=== PATIENT | male | born 1955 | race Caucasian/White ===

== ENCOUNTER 2024-11-04 09:51 | Outpatient (OUT) | payer MEDICARE, SELFPAY ==
--- NOTE | 2024-11-04 | ECG_ITS ---
The [facility] Test Date: 2024-11-04 Pat Name: LAZARO CRUZ Department: Room: - Gender: Male Applications Project Manager: : 1955 Requested By: [id number] Order Number: [id number] Reading MD: NAVEED CHEN Measurements Intervals Morrison Rate: 64 P: 75 MI: 174 QRS: 7 QRSD: 121 T: 70 QT: 394 QTc: 409 Interpretive Statements SINUS RHYTHM MODERATE INTRAVENTRICULAR CONDUCTION DELAY [110+ ms QRS DURATION] No previous ECG available for comparison Electronically Signed On 11-04-2024 20:46:39 EST by NAVEED CHEN
--- NOTE | 2024-11-04 10:10 | XR_ITS ---
The [address] [address] Patient Name: LAZARO CRUZ MRN: [id number] date: 1955 Sex: M Assigned Patient Location: RAD Current Patient Location: [facility] Accession/Order Number: [id number] Exam Date: 11/04/2024 10:15 Report Date: 11/04/2024 10:31 At the request of: NON-STAFF PHYSICIAN Procedure: XR chest 2V PROCEDURE: XR chest 2V DATE: 11/04/2024 10:15 AM EST COMPARISONS: None. CLINICAL INDICATION: 69 years Male Chest Pain FINDINGS: The cardiomediastinal silhouette and pulmonary vasculature are within normal limits. The lungs are clear. There is no evidence of pleural effusion or pneumothorax. XR/XR chest 2V IMPRESSION: Chest radiograph is within normal limits. Electronically authenticated by: GINA FISHER Date: 11/04/2024 10:31
== END 2024-11-04 09:52 | disposition home or self-care (01) ==
LOC: RAD 10:00
DX: R07.89 Other chest pain (principal)
CPT/HCPCS: 71046; 93005

== ENCOUNTER 2024-11-12 06:27 | Outpatient (OUT) | payer MEDICARE, SELFPAY ==
--- OUTSIDE RECORDS SUMMARY | 2024-11-12 06:30 | XMS_ITS | CCD ---
Author Organization [facility] Team Providers Care Hand Former Helper Name Role Phone Shaquille Campbell APRN, CNP Primary Care Provide r SHAQUILLE RUBIO Referring Unavailable SHAQUILLE RUBIO Primary Care Unavailable SHAQUILLE RUBIO Primary Care Unavailable SHAQUILLE RUBIO Referring Unavailable Medications Current Medications Medication Drug Class(es) Dates Sig (Normalized) Sig (Original) amoxicillin 875 mg / clavulanate 125 mg oral tablet (1 source) Penicillin-class Antibacterial Start: 10-21-2024 End: 10-28-2024 take 1 tablet by mouth twice daily amoxicillin-clav ulanate (AUGMENTIN) 875-125 MG per tablet Take 1 tablet by mouth 2 times daily for 7 days 14 tablet 10/21/2024 10/28/2024 Active Problems Problem Classification Problem Date Documented Da te Episodic/Chronic Calculus of urinary tract (2 sources) Kidney stone; Translations: [Calculus of kidney] 10-17-2024 Episodic Other screening for suspected conditions (not mental disorders or infectious disease) (1 source) Patient encounter status; Translations: [Encounter for screening for malignant neoplasm of prostate] 10-17-2024 Episodic Skin and subcutaneous tissue infections (1 source) Abscess of head, except face; Translations: [Cutaneous abscess of head [any part, except face]] 10-21-2024 Episodic Spondylosis; intervertebral disc disorders; other back problems (2 sources) Chronic back pain ; Translations: [Dorsalgia, unspecified] 10-17-2024 Episodic Results Test Name Value Interpretation Reference Range Facil ity AEROBIC CULTUREon 10-21-2024 AEROBIC CULTURE MICROBIOLOGY REPORT [facility], [address], [place], [address] PATIENT: JERRY CRUZ LOCATION: [facility] - - : 1955 AGE: 69 SEX: M ADM: 10/21/24 Att. Physician: ANDREWS AGUIAR Order Id: [id number] Req. Physician: ANDREWS AGUIAR Source: abscess Site: Collected: 10/21/24 20:45 Current Antibiotics: not stated Antibiotics comment: C O M M E N T S ---- [place] - Source of Aerobic Culture? Abscess;occipital scalp STATUS OF ORDERED AND REPORTED TESTS AEROBIC CULTURE FINAL 10/23/24 GRAM STAIN DIRECT FINAL 10/22/24 AEROBIC CULTURE FINAL 10/23/24 06:39 10/22/24 No growth-preliminary 10/23/24 No growth GRAM STAIN DIRECT FINAL 10/22/24 11:53 10/22/24 No segmented neutrophils observed. No epithelial cells observed. No bacteria seen. Normal [facility] Culture, [employer] [place] - AEROBIC CULTURE No growth Normal [facility] Comment on above: Order Comment: [place] - Source of Aerobic Culture? Abscess;occipital scalp\X0D0A\Performed by [facility] [address] [place] [address] [place] - Source of Aerobic Culture? Abscess;occipital scalp [place] - Current Antibiotic Therapy? No Answer Given Performed By: #### C AER #### [facility] See Report [place] - GRAM STAIN DIRECT See Note Normal [facility] Comment on above: Order Comment: [place] - Source of Aerobic Culture? Abscess;occipital scalp\X0D0A\[place] [id number] [place] - Source of Aerobic Culture? Abscess;occipital scalp [place] - Current Antibiotic Therapy? No Answer Given Result Comment: No s egmented neutrophils observed. No epithelial cells observed. No bacteria seen. Performed By: #### C AER #### [facility] See Report [place] - SOURCE abscess Normal [facility] Comment on above: Order Comment: [place] - Source of Aerobic Culture? Abscess;occipital scalp\X0D0A\Performed by [facility] [address] [place] [address] [place] - Source of Aerobic Culture? Abscess;occipital scalp [place] - Current Antibiotic Therapy? No Answer Given Performed By: #### C AER #### [facility] See Report CBC with Auto Differentialon 10-17-2024 Basophils (Bld) [#/Vol] 0.0 10*3/uL [facility] Basophils/100 WBC (Bld) 1 % 0 - 1 % [facility] Eosinophils Absolute 0.[address] [facility] Eosinophils/100 WBC (Bld) 1 % 0 - 5 % [facility] Erythrocyte distribution width (RBC) [Ratio] 12.6 % 11.5 - 14.5 % [facility] Hematocrit (Bld) [Volume fraction] 42.4 % 42.0 - 52.0 % [facility] Hemoglobin (Bld) [Mass/Vol] 14.2 g/dL 13.5 - 17.5 g/dL [facility] Lymphocytes Absolute 3.[address] [facility] Lymphocytes/100 WBC (Bld) 48 % High 20 - 40 % [facility] MCH (RBC) [Entitic mass] 31.8 pg 27.0 - 35.0 pg [facility] MCHC (RBC) [Mass/Vol] 33.5 g/dL 32.0 - 36.0 g/dL [facility] MCV (RBC) [Entitic vol] 94.9 fL 80.0 - 100.0 fL [facility] Monocytes Absolute 0.7 [facility] Monocytes/100 WBC (Bld) 9 % 1 - 15 % [facility] Neutrophils Absolute 3.[address] [facility] Neutrophils/100 WBC (Bld) 42 % Low 50 - 70 % [facility] Platelet mean volume (Bld) [Entitic vol] 9.7 fL 9.4 - 12.3 fL [facility] Platelets (Bld) [#/Vol] 374 10*3/uL [facility] RBC (Bld) [#/Vol] 4.47 10*6/uL Low [facility] WBC (Bld) [#/Vol] 7.9 10*3/uL [facility] Complete Blood Count with Au to Diffon 10-17-2024 BASO# BASO#: 0.0 Normal 0.0-0.1 [facility] Comment on above: Performed By: #### A 1C, CBCAD #### [place] [address] Ph. [phone] Basophils/100 WBC (Bld) 1 % Normal 0-1 [facility] Comment on above: Performed By: #### A 1C, CBCAD #### [place] [address] Ph. [phone] Eosinophils (Bld) [#/Vol] 0.1 10*3/uL Normal 0.0-0.5 [facility] Comment on above: Performed By: #### A 1C, CBCAD #### [place] [address] Ph. [phone] Eosinophils/100 WBC (Bld) 1 % Normal 0-5 [facility] Comment on above: Performed By: #### A 1C, CBCAD #### [place] [address] Ph. [phone] Erythrocyte distribution width (RBC) [Ratio] 12.6 % Normal 11.5-14.5 [facility] Comment on above: Performed By: #### A 1C, CBCAD #### [place] [address] Ph. [phone] Hematocrit (Bld) [Volume fraction] 42.4 % Normal 42.0-52.0 [facility] Comment on above: Performed By: #### A 1C, CBCAD #### [place] [address] Ph. [phone] Hemoglobin (Bld) [Mass/Vol] 14.2 g/dL Normal 13.5-17.5 [facility] Comment on above: Performed By: #### A 1C, CBCAD #### [place] [address] Ph. [phone] Lymphocytes (Bld) [#/Vol] 3.8 10*3/uL Normal 1.0-4.0 [facility] Comment on above: Performed By: #### A 1C, CBCAD #### [place] [address] Ph. [phone] Lymphocytes/100 WBC (Bld) 48 % High 20-40 [facility] Comment on above: Performed By: #### A 1C, CBCAD #### [place] [address] Ph. [phone] MCH (RBC) [Entitic mass] 31.8 pg Normal 27.0-35.0 [facility] Comment on above: Performed By: #### A 1C, CBCAD #### [place] [address] Ph. [phone] MCHC (RBC) [Mass/Vol] 33.5 g/dL Normal 32.0-36.0 [facility] Comment on above: Performed By: #### A 1C, CBCAD #### [place] [address] Ph. [phone] MCV (RBC) [Entitic vol] 94.9 fL Normal 80.0-100.0 [facility] Comment on above: Performed By: #### A 1C, CBCAD #### [place] [address] Ph. [phone] Monocytes (Bld) [#/Vol] 0.7 10*3/uL Normal 0.3-1.0 [facility] Comment on above: Performed By: #### A 1C, CBCAD #### [address] [address] Ph. [phone] Monocytes/100 WBC (Bld) 9 % Normal 1-15 [facility] Comment on above: Performed By: #### A 1C, CBCAD #### [address] [address] Ph. [phone] Neutrophils (Bld) [#/Vol] 3.3 10*3/uL Normal 1.8-7.7 [facility] Comment on above: Performed By: #### A 1C, CBCAD #### [address] [address] Ph. [phone] Neutrophils/100 WBC (Bld) 42 % Low 50-70 [facility] Comment on above: Performed By: #### A 1C, CBCAD #### [address] [address] Ph. [phone] Platelet mean volume (Bld) [Entitic vol] 9.7 fL Normal 9.4-12.3 [facility] Comment on above: Performed By: #### A 1C, CBCAD #### [address] [address] Ph. [phone] Platelets (Bld) [#/Vol] 374 10*3/uL Normal 150-450 [facility] Comment on above: Performed By: #### A 1C, CBCAD #### [address] [address] Ph. [phone] RBC (Bld) [#/Vol] 4.47 10*6/uL Low 4.70-6.10 [facility] Comment on above: Performed By: #### A 1C, CBCAD #### [address] [address] Ph. [phone] WBC (Bld) [#/Vol] 7.9 10*3/uL Normal 3.7-11.0 [facility] Comment on above: Performed By: #### A 1C, CBCAD #### [address] [place] [address] Ph. [phone] Comprehensive Metabolic Pane lázaro 10-17-2024 Albumin [Mass/Vol] 4.9 g/dL 3.5 - 5.0 g/dL [facility] ALP (Bld) [Catalytic activity/Vol] 60 U/L 38 - 126 U/L [facility] ALT [Catalytic activity/Vol] 11 U/L 0 - 50 U/L [facility] AST [Catalytic activity/Vol] 30 U/L 17 - 59 U/L [facility] Bilirubin [Mass/Vol] 1.1 mg/dL 0.2 - 1.3 mg/dL [facility] Calcium [Mass/Vol] 9.5 mg/dL 8.4 - 10. 2 mg/dL [facility] Chloride [Moles/Vol] 100 mmol/L [facility] CO2 [Moles/Vol] 30 mmol/L [facility] Creatinine [Mass/Vol] 1.10 mg/dL 0.66 - 1.25 mg/dL [facility] Est, Glom Filt Rate 73 - PINF [facility] Comment on above: GFR calculated using CKD-EPI (2020) formula. Stage 1 Kidney damage (e.g., protein in the urine) with normal GFR >=90 Stage 2 Kidney damage with mild decrease in GFR 60-89 Stage 3a Moderate decrease in GFR 45-59 Stage 3b Moderate decrease in GFR 30-44 Stage 4 Severe reduction in GFR 15-29 Stage 5 Kidney failure <15 Glucose [Mass/Vol] 112 mg/dL High 65 - 100 mg/dL [facility] Potassium [Moles/Vol] 4.6 mmol/L [facility] Protein [Mass/Vol] 8.0 g/dL 6.3 - 8.2 g/dL [facility] Sodium [Moles/Vol] 141 mmol/L [facility] Urea nitrogen (BldV) [Mass/Vol] 17 mg/dL 9 - 20 mg/dL [facility] Albumin [Mass/Vol] 4.9 g/dL Normal 3.5-5.0 [facility] Comment on above: Performed By: #### C MP, LIPD, MG, [id number], PSA #### [place] [address] Ph. [phone] ALP [Catalytic activity/Vol] 60 U/L Normal 38-126 [facility] Comment on above: Performed By: #### C MP, LIPD, MG, [id number], PSA #### [place] [address] Ph. [phone] ALT [Catalytic activity/Vol] 11 U/L Normal 0-50 [facility] Comment on above: Performed By: #### C MP, LIPD, MG, [id number], PSA #### [place] [address] Ph. [phone] AST [Catalytic activity/Vol] 30 U/L Normal 17-59 [facility] Comment on above: Performed By: #### C MP, LIPD, MG, [id number], PSA #### [place] [address] Ph. [phone] Bilirubin [Mass/Vol] 1.1 mg/dL Normal 0.2-1.[address] [facility] Comment on above: Performed By: #### C MP, LIPD, MG, [id number], PSA #### [place] [address] Ph. [phone] Calcium [Mass/Vol] 9.5 mg/dL Normal 8.4-10.2 [facility] Comment on above: Performed By: #### C MP, LIPD, MG, [id number], PSA #### [place] [address] Ph. [phone] Chloride [Moles/Vol] 100 mmol/L Normal 98-[address] [facility] Comment on above: Performed By: #### C MP, LIPD, MG, [id number], PSA #### [id number] Ph. [phone] CO2 [Moles/Vol] 30 mmol/L Normal 22-32 [facility] Comment on above: Performed By: #### C MP, LIPD, MG, [id number], PSA #### [place] [address] Ph. [phone] Creatinine [Mass/Vol] 1.10 mg/dL Normal 0.66-1.25 [facility] Comment on above: Performed By: #### C MP, LIPD, MG, [id number], PSA #### [place] [address] Ph. [phone] GFR/1.73 sq M.predicted among non-blacks MDRD (S/P/Bld) [Vol rate/Area] 73 mL/min/{1.73_m2} Normal >60 [facility] Comment on above: Result Comment: GFR calculated using CKD-EPI (2020) formula.\X0D0A\Stage 1 Kidney damage (e.g., protein in the urine) with normal GFR >=90\X0D0A\Stage 2 Kidney damage with mild decrease in GFR 60-89\X0D0A\Stage 3a Moderate decrease in GFR 45-59\X0D0A\Stage 3b Moderate decrease in GFR 30-44\X0D0A\Stage 4 Severe reduction in GFR 15-29\X0D0A\Stage 5 Kidney failure <15 Performed By: #### C MP, LIPD, MG, [id number], PSA #### [place] [place] [id number] Ph. [phone] Glucose [Mass/Vol] 112 mg/dL High 65-100 [facility] Comment on above: Performed By: #### C MP, LIPD, MG, [id number], PSA #### [address] [address] Ph. [phone] Potassium [Moles/Vol] 4.6 mmol/L Normal 3.6-5.0 [facility] Comment on above: Performed By: #### C MP, LIPD, MG, [id number], PSA #### [place] [address] Ph. [phone] Protein [Mass/Vol] 8.0 g/dL Normal 6.3-8.2 [facility] Comment on above: Performed By: #### C MP, LIPD, MG, [id number], PSA #### [place] [address] Ph. [phone] Sodium [Moles/Vol] 141 mmol/L Normal 135-145 [facility] Comment on above: Performed By: #### C MP, LIPD, MG, [id number], PSA #### [place] [address] Ph. [phone] Urea nitrogen [Mass/Vol] 17 mg/dL Normal 9-20 [facility] Comment on above: Performed By: #### C MP, LIPD, MG, [id number], PSA #### [place] [address] Ph. [phone] Hemoglobin A1Con 10-17-2024 Glucose [Mass/Vol] 111 mg/dL [facility] Comment on above: Estimated Average Glucose is a caluculated value from Hemoglobin A1C and is product support representative of the average blood glucose level in the last 2-3 month period. HbA1c (Bld) [Mass fraction] 5.5 % 4.0 - 5.6 % [facility] Comment on above: [place] [employer] guidelines indicate that patients with HgbA1C in the range of 5.7-6.4% are at increased risk for development of diabetes, and intervention by lifestyle modification may be beneficial. HgbA1C greater than or equal to 6.5% is considered diagnostic of diabetes. Hemoglobin A1c should not be used in patients with homozygous sickle cell trait, hemolytic anemia, or other hemolytic diseases and recent significant or chronic blood loss or blood transfusions. Alternative forms of testing such as glycated serum protein or glycated albumin should be considered for these patients. [facility] EAG 111 mg/dL Normal [facility] Comment on above: Result Comment: Oliva pos[employer] Average Glucose is a caluculated value from Hemoglobin A1C and is product support representative of the average blood glucose level in the last 2-3 month period. Performed By: #### A 1C, CBCAD #### [address] [place] [id number] Ph. [phone] HbA1c (Bld) [Mass fraction] 5.5 % Normal 4.0-5.6 [facility] Comment on above: Result Comment: [facility] [employer] guidelines indicate that patients with HgbA1C in the range of 5.7-6.4% are at increased risk for development of diabetes, and intervention by lifestyle modification may be beneficial. HgbA1C greater than or equal to 6.5% is considered diagnostic of diabetes.\X0D0A\X0D0A\Hemoglobin A1c should not be used in patients with homozygous sickle cell trait, hemolytic anemia, or other hemolytic diseases and recent significant or chronic blood loss or blood transfusions. Alternative forms of testing such as glycated serum protein or glycated albumin should be considered for these patients. Performed By: #### A 1C, CBCAD #### [place] [address] Ph. [phone] Lipid Panelon 10-17-2024 Cholesterol [Mass/Vol] 244 mg/dL High 100 - 200 mg/dL [facility] Comment on above: <200 mg/dL is recommended cholesterol level. Cholesterol in HDL [Mass/Vol] 46 mg/dL 40 - PINF mg/dL [facility] Cholesterol in LDL [Mass/Vol] 174 mg/dL High 20 - 100 mg/dL [facility] CHOLESTEROL/HDL RELATIVE RISK 5 [facility] Triglyceride [Mass/Vol] 118 mg/dL 10 - 150 mg/dL [facility] Is Patient Fasting?/# of Hours->8 [facility] Cholesterol [Mass/Vol] 244 mg/dL High 100-200 [facility] Comment on above: Order Comment: Is Pa tient Fasting?/# of Hours->8 Result Comment: <200 mg/dL is recommended cholesterol level. Performed By: #### C MP, LIPD, MG, [id number], PSA #### [place] [address] Ph. [phone] Cholesterol in HDL [Mass/Vol] 46 mg/dL Normal >40 [facility] Comment on above: Order Comment: Is Pa tient Fasting?/# of Hours->8 Performed By: #### C MP, LIPD, MG, [id number], PSA #### [place] [address] Ph. [phone] Cholesterol in LDL [Mass/Vol] 174 mg/dL High 20-100 [facility] Comment on above: Order Comment: Is Pa tient Fasting?/# of Hours->8 Performed By: #### C MP, LIPD, MG, [id number], PSA #### [place] [address] Ph. [phone] Cholesterol.total/Cho lesterol in HDL [Mass ratio] 5 {ratio} Normal 1-5 [facility] Comment on above: Order Comment: Is Pa tient Fasting?/# of Hours->8 Performed By: #### C MP, LIPD, MG, [id number], PSA #### [place] [address] Ph. [phone] Triglyceride [Mass/Vol] 118 mg/dL Normal 10-150 [facility] Comment on above: Order Comment: Is Pa tient Fasting?/# of Hours->8 Performed By: #### C MP, LIPD, MG, [id number], PSA #### [place] [address] Ph. [phone] Magnesiumon 10-17-2024 Magnesium [Mass/Vol] 2.2 mg/dL 1.6 - 2.3 mg/dL [facility] Magnesium [Mass/Vol] 2.2 mg/dL Normal 1.6-2.[address] [facility] Comment on above: Performed By: #### C MP, LIPD, MG, [id number], PSA #### [address] [place] [address] Ph. [phone] No Panel Informationon 10-17 [facility] Interpretation and review of laboratory results Abnormal [facility] Interpretation and review of laboratory results Abnormal [facility] TSH Reflex FT4on 10-17-2024 TSH 1.920 mIU/mL Normal 0.470-4.680 [facility] Comment on above: Performed By: #### C MP, LIPD, MG, [id number], PSA #### [address] [address] Ph. [phone] TSH reflex to FT4on 10-17-19 25 TSH Qn 1.920 m[IU]/L [facility] Urinalysis with Reflex to Cu ltureon 10-17-2024 BACTERIA, URINE Trace [facility] Bilirubin, Urine Negative Negative [facility] Blood, Urine Negative Negative [facility] Clarity, UA Clear [facility] Color, UA Yellow [facility] Culture Indicated? No [facility] Glucose, Ur Negative Negative mg/dL [facility] Ketones Ql (U) Negative Negative mg/dL [facility] Leukocyte esterase Test strip Ql (U) Negative Negative [facility] Nitrate, UA Negative Negative [facility] pH (U) 7.5 [pH] Abnormal 5.0 - 7.0 [facility] Protein, Ur (gm/dL) Negative Negative mg/dL [facility] RBC, UA None Seen #/HPF [facility] Specific [place], UA 1.015 1.005 - 1.030 [facility] Urobilinogen, Urine 0.2 E.U./dL NINF [facility] WBC, UA None Seen #/HPF [facility] SPECIFY(EX-CATH,MIDS TREAM,CYSTO,ETC)?->m id [facility] Urinalysis, Complete reflex to cultureon 10-17-2024 BACT Trace Normal [facility] Comment on above: Order Comment: SPECI FY(EX-CATH,MIDSTREAM,CYSTO,ETC)?->mid Performed By: #### U COMP/WRCX #### [place] [address] Ph. [phone] CULTIND No [facility] Comment on above: Order Comment: SPECI FY(EX-CATH,MIDSTREAM,CYSTO,ETC)?->mid Performed By: #### U COMP/WRCX #### [place] [address] Ph. [phone] UBIL Negative Normal Negative [facility] Comment on above: Order Comment: SPECI FY(EX-CATH,MIDSTREAM,CYSTO,ETC)?->mid Performed By: #### U COMP/WRCX #### [place] [address] Ph. [phone] UBLO Negative Normal Negative [facility] Comment on above: Order Comment: SPECI FY(EX-CATH,MIDSTREAM,CYSTO,ETC)?->mid Performed By: #### U COMP/WRCX #### [place] [address] Ph. [phone] UCLAR Clear [facility] Comment on above: Order Comment: SPECI FY(EX-CATH,MIDSTREAM,CYSTO,ETC)?->mid Performed By: #### U COMP/WRCX #### [place] [address] Ph. [phone] UCOL Yellow [facility] Comment on above: Order Comment: SPECI FY(EX-CATH,MIDSTREAM,CYSTO,ETC)?->mid Performed By: #### U COMP/WRCX #### [place] [address] Ph. [phone] UGLU Negative Normal Negative [facility] Comment on above: Order Comment: SPECI FY(EX-CATH,MIDSTREAM,CYSTO,ETC)?->mid Performed By: #### U COMP/WRCX #### [place] [address] Ph. [phone] UKET Negative Normal Negative [facility] Comment on above: Order Comment: SPECI FY(EX-CATH,MIDSTREAM,CYSTO,ETC)?->mid Performed By: #### U COMP/WRCX #### [place] [address] Ph. [phone] ULEU Negative Normal Negative [facility] Comment on above: Order Comment: SPECI FY(EX-CATH,MIDSTREAM,CYSTO,ETC)?->mid Performed By: #### U COMP/WRCX #### [place] [address] Ph. [phone] UNIT Negative Normal Negative [facility] Comment on above: Order Comment: SPECI FY(EX-CATH,MIDSTREAM,CYSTO,ETC)?->mid Performed By: #### U COMP/WRCX #### [place] [address] Ph. [phone] UPH 7.5 Abnormal 5.0-7.0 [facility] Comment on above: Order Comment: SPECI FY(EX-CATH,MIDSTREAM,CYSTO,ETC)?->mid Performed By: #### U COMP/WRCX #### [place] [address] Ph. [phone] UPRO Negative Normal Negative [facility] Comment on above: Order Comment: SPECI FY(EX-CATH,MIDSTREAM,CYSTO,ETC)?->mid Performed By: #### U COMP/WRCX #### [place] [address] Ph. [phone] URBC None Seen Normal [facility] Comment on above: Order Comment: SPECI FY(EX-CATH,MIDSTREAM,CYSTO,ETC)?->mid Performed By: #### U COMP/WRCX #### [place] [address] Ph. [phone] USG 1.015 Normal 1.005-1.030 [facility] Comment on above: Order Comment: SPECI FY(EX-CATH,MIDSTREAM,CYSTO,ETC)?->mid Performed By: #### U COMP/WRCX #### [place] [address] Ph. [phone] UURO 0.2 E.U./dL Normal <2.0 [facility] Comment on above: Order Comment: SPECI FY(EX-CATH,MIDSTREAM,CYSTO,ETC)?->mid Performed By: #### U COMP/WRCX #### [place] [address] Ph. [phone] UWBC None Seen Normal [facility] Comment on above: Order Comment: SPECI FY(EX-CATH,MIDSTREAM,CYSTO,ETC)?->mid Performed By: #### U COMP/WRCX #### [place] [address] Ph. [phone] Encounters Encounter Date Encounter Type Care Provider Facility Start: 10-21-2024 ambulatory [facility] Start: 10-21-2024 End: 10-21-2024 Subsequent hospital visit by physician Shaquille Horn CNP Work Phone: [facility] Comment on above: Cutaneous abscess of head excluding face Start: 10-17-2024 ambulatory [facility] Start: 10-17-2024 End: 10-17-2024 Patient encounter procedure Shaquille Horn CNP Work Phone: [facility] Start: 10-17-2024 End: 10-17-2024 Subsequent hospital visit by physician Shaquille Horn CNP Work Phone: [facility] Comment on above: Encounter for annual wellness exam in Medicare patient; Screening for malignant neoplasm of prostate Procedures Date Procedure Procedure Detail Performing Clinician Start: 10-17-2024 PSA screening Shaquille jacobs [employer] [facility] Work Phone: Comment on above: [facility] UTILIZES [employer] PSA METHODOLOGY. DIFFERENT TEST METHODS CANNOT BE USED INTERCHANGEABLY. PSA RESULTS IN A GIVEN PATIENT SAMPLE DETERMINED WITH DIFFERENT TESTS AND FROM DIFFERENT MANUFACTURERS CAN VARY DUE TO DIFFERENCES IN TEST METHODS AND REAGENTS. Start: 10-17-2024 Urnls dip stick/tabl et rgnt auto w/o microscopy Shaquille Rubio [employer] [facility] Work Phone: Start: 10-17-2024 Comprehensive metabo lic panel Shaquille Rubio [facility] [employer] [facility] Work Phone: Comment on above: Result Comment: [facility] UTILIZES [employer] PSA METHODOLOGY. DIFFERENT TEST METHODS CANNOT BE USED INTERCHANGEABLY. PSA RESULTS IN A GIVEN PATIENT SAMPLE DETERMINED WITH DIFFERENT TESTS AND FROM DIFFERENT MANUFACTURERS CAN VARY DUE TO DIFFERENCES IN TEST METHODS AND REAGENTS. Performed By: #### C MP, LIPD, MG, [id number], PSA #### [place] [address] Ph. [phone] Start: 10-17-2024 Lipid panel Shaquille vincent [facility] [employer] [facility] Work Phone: Plan of Treatment Date Care Activity Detail Author Start: 2030 Respiratory Syncytia l Virus (RSV) or age 60 yrs+ (1 - 1-dose 75+ series) Respiratory Syncytial Virus (RSV) or age 60 yrs+ (1 - 1-dose 75+ series) [facility] Start: 10-17-[address] [facility] Start: 10-17-2027 Diabetes screen Diabetes screen [facility] Start: 10-18-2025 Annual Wellness Visi t (Medicare) Annual Wellness Visit (Medicare) [facility] Start: 01-14-2025 End: 01-14-2025 Patient encounter procedure 01/14/2025 8:30 AM EDT Office Visit [facility] MED Primary Care [address] [place] [id number] Shaquille Rubio APRN - ELECTRICAL PROSPECTOR [address] [facility] [place] [address] 3 mo [facility] Comment on above: 3 mo Start: 10-21-2024 End: 10-21-2024 Patient encounter procedure 10/21/2024 11:30 AM EST Procedure visit [facility] [address] [place] [address] Andrews Aguiar MD [address] [place] [address] cauterize spot on right shoulder per RG [facility] Comment on above: cauterize spot on right shoulder per RG Start: 06-02-2024 COVID-19 Vaccine ( season) COVID-19 Vaccine ( season) [facility] Start: 05-02-2024 Influenza vaccination Flu vaccine (# 1) [facility] Start: 2020 Abdominal aortic aneurysm screening AAA screen [facility] Start: 2020 Pneumococcal 65+ yea rs Vaccine (1 of 1 - PCV) Pneumococcal 65+ years Vaccine (1 of 1 - PCV) [facility] Start: 2005 Shingles vaccine (1 of 2) Shingles vaccine (1 of 2) [facility] Start: 2000 Screening for malign ant neoplasm of colon [facility] Start: 1974 DTaP/Tdap/Td vaccine (1 - Tdap) DTaP/Tdap/Td vaccine (1 - Tdap) [facility] Start: 1973 Hepatitis C screening Hepatitis C sc reen [facility] Start: 1967 Depression Screen Depression Screen [facility] End: 10-21-2024 Culture, Aerobic Culture, Aerobic Microbiology Routine Once for 1 Occurrences starting 10/21/2024 until 10/21/2024 [facility] Work Phone: Comment on above: Once for 1 Occurrenc es starting 10/21/2024 until 10/21/2024 Payers Date Payer Category Payer Private Health Insurance [id number] 2020 Medicare [id number] 1955 Unknown [id number] 1955 Unknown [id number] Social History Date Type Detail Facility Start: 10-17-2024 Tobacco smoking stat [facility] Ex-smoker [facility] Work Phone: Start: 10-02-1971 End: 10-02-2002 History of tobacco use Current smoker [facility] Work Phone: Start: 10-02-1971 End: 10-02-2002 History of tobacco use Cigarette Smoker [facility] Work Phone: Start: 10-17-2024 End: 10-21-2024 Cigarettes smoked current (pack per day) - Reported 2 [facility] Work Phone: Start: 10-17-2024 Tobacco use and exposure Smoke less tobacco non-user [facility] Work Phone: Start: 10-17-2024 End: 10-21-2024 Alcoholic beverage intake Current drinker of alcohol (finding) [facility] Work Phone: Start: 10-17-2024 End: 10-21-2024 [facility] Utilities [facility] Work Phone: Has the [employer], [employer], or [employer] threatened to shut off services in your home in past 12Mo No [facility] Work Phone: Do you belong to any clubs or organizations such as jain groups, unions, fraternal or athletic groups, or school groups? Yes [facility] Work Phone: Are you now , , , , never or living with a partner? [facility] Work Phone: How often to you hav e a drink containing alcohol? 2-3 time sa week [facility] Work Phone: How many standard dr inks containing alcohol do you have on a typical day? 5 or 6 [facility] Work Phone: How often do you hav e 6 or more drinks on 1 occasion? Weekly [facility] Work Phone: How hard is it for y ou to pay for the very basics like food, housing, medical care, and heating Not hard at all [facility] Work Phone: Do you feel stress - tense, restless, nervous, or anxious, or unable to sleep at night because your mind is troubled all the time - these days [OSQ] Only a little [facility] Work Phone: (I/We) worried whetiffany er (my/our) food would run out before (I/we) got money to buy more. Never true [facility] Work Phone: Start: 1955 Sex assigned at Not on file [facility] Work Phone: Evaluation note Note Date & Type Note Facility Evaluation note Diagnosis Encounter for annual wellness exam in Medicare patient Screening for malignant neoplasm of prostate documented in this encounter [facility] Work Phone: Evaluation note Note Date & Type Note Facility Evaluation note Diagnosis Cutaneous abscess of head excluding face Cellulitis and abscess of other specified site documented in this encounter [facility] Work Phone: Summary Purpose Family History No Family History Records FoundNo Family History Records Found Advance Directives No Advanced Directives Records FoundNo Advanced Directives Records Found Additional Source Comments Care Teams (unrecognized sec tion and content) Hand Former Helper Relationship Specialty Start Date End Date Valarie, Shaquille, [employer] [facility] [address] [place] [address] PCP - General Nurse Practitioner 10/17/24 Hand Former Helper Relationship Specialty Start Date End Date Shaquille Rubio APRN - [facility] [address] [place] [address] PCP - General Nurse Practitioner 10/17/24 (unrecognized sect ion and content) No Status Records FoundNo Status Records Found INFORMATION SOURCE (unrecogn ized section and content) DATE CREATED AUTHOR 10/23/2024 [facility] DATE CREATED AUTHOR 'S FRANCOIZ JUAN R 10/24/2024 [facility] FOR RECORDS PERTAINING TO PATIENTS WHO ARE OR HAVE BEEN ENROLLED IN A CHEMICAL DEPENDENCY/SUBSTANCEABUSE PROGRAM, SOME INFORMATION MAY BE OMITTED. This clinical summary was aggregated from multiple sources. Caution should be exercised in using it in the provision of clinical care. This summary normalizes information from multiple sources, and as a consequence, information in this document may materially change the coding, format and clinical context of patient data. In addition, data may be omitted in some cases. CLINICAL DECISIONS SHOULD BE BASED ON THE PRIMARY CLINICAL RECORDS. [facility] Cell[facility]. provides no warranty or guarantee of the accuracy or completeness of information in this document.
--- NOTE | 2024-11-12 10:24 | PM.STRESS ---
Stress Test Stress Test Requesting physician: Shaquille Sheppard Procedure: Exercise Cardiolite stress test General Information: Reason for Stress Test: Chest pain, palpitations Cardiac History and Risk Factors: Former smoker Resting 12 - Lead Electrocardiogram: Normal sinus rhythm with rate 64. Normal axis. Flattened T-waves in aVL Normal ST-segments. Stress Test: Protocol: Zeb protocol was followed, with injection of Cardiolite once target heart rate was achieved. Exercise capacity: Fair exercise capacity. Total exercise time of 4 minutes 40 seconds reached Zeb stage 2 at 2.5MPH, 12% grade, & 7 METs. Blood pressure: Initial: 142/74, Maximum: 232/96 Rate & rhythm: Patient remained in sinus rhythm during the exercise and recovery portions of the study.? The maximum heart rate was 148, which was 98% of the maximum predicted heart rate. ST-segments & T-waves: During exercise, the T-waves in aVL assumed an inverted orientation. At the beginning of recovery (28 seconds), there was ST segment elevation in aVL, but no abnormalities noted in lead I. 8 minutes into recovery, T-waves in lead I became biphasic and became flattened at 10 minutes into recovery. Patient response/symptoms: Patient complained of chest pain rated 4/10, but not as severe as his chief complaint. Interpretation: Equivocal exercise stress test, with abnormal ST-segment and T-wave findings in the lateral leads but are not diagnostic for ischemia, along with a degree of chest pain similar but not as intense as his chief complaint. Cardiolite imaging interpretation will be reported separately. Clinical correlation required.?
== END 2024-11-12 06:28 | disposition home or self-care (01) ==
LOC: NM 06:27
PROVIDERS: PCP Nurse Practitioner; Visit Provider Nurse Practitioner
DX: R07.9 Chest pain, unspecified (principal)
CPT/HCPCS: 78452; 93017; A9500